=== PATIENT | female | born 1995 | race African-American/Black ===

== ENCOUNTER 2017-11-20 23:23 | Emergency (ER) | payer OTHER ==
[~2017-11-20] VITALS: Ht 157.5 cm; Wt 86.4 kg
[~2017-11-20 23:23] MED LIST: BACTROBAN2 % EX; CEPHALEXIN500 MG PO; CLEOCIN300 MG PO; CLINDAMYCIN11; CUBICIN500 MG IV; DEP0PROVERA; KEPPRA500 MG PO; LUPRON DEPOT11.25 MG IM; MIRALAX3350 N1 PO; NO HOME MEDS; PRENATAL1 TAB; TYLENOL # 31 TA1 PO; VANCOMYCIN
[2017-11-21 01:02] LABS: HEMATOCRIT 40.3 % (37.0-47.0); HEMOGLOBIN 12.9 g/dl (12.0-16.0); IMMATURE GRANULOCYTES 0.3 % (0.0-1.0); MEAN CELL VOLUME 85.2 fL CALC (80.0-100.0); MEAN CORPUSCULAR HGB 27.3 pG CALC (26.0-32.0); NEUT# 9.55 thou/uL (2.00-7.15); RED BLOOD COUNT 4.73 mill/uL (4.20-5.60); RED CELL DISTRI WIDTH 14.4 % (11.5-15.5)
[2017-11-21 01:03] LABS: URINE BILIRUBIN - DIPSTICK NEGATIVE (NEGATIVE); URINE BLOOD DIPSTICK NEGATIVE (NEGATIVE); URINE COLOR YELLOW; URINE GLUCOSE - DIPSTICK NEGATIVE (NEGATIVE); URINE KETONE NEGATIVE (NEGATIVE); URINE LEUK ESTERASE NEGATIVE (NEGATIVE); URINE NITRITE - DIPSTICK NEGATIVE (Negative); URINE PROTEIN - DIPSTICK NEGATIVE (NEG-TRACE); URINE SPECIFIC GRAVITY >=1.030; URINE UROBILINOGEN - DIPSTICK 0.2 E.U./dL (0.2)
[2017-11-21 01:04] LABS: URINE CLARITY SL CLOUDY
[2017-11-21 01:13] LABS: ALBUMIN 4.4 g/dL (3.2-5.0); ALKALINE PHOSPHATASE 67 u/l (38-126); AMYLASE 39 u/l (30-110); ANION GAP 19 (6-22 (CALC)); BILIRUBIN, TOTAL 0.7 mg/dL (0.0-1.4); BUN 9 mg/dL (7-17); BUN/CREATININE RATIO 14 (12-20 (CALC)); CARBON DIOXIDE 23 mmol/l (22-30); CHLORIDE 105 mmol/l (95-108); CREATININE 0.6 mg/dL (0.5-1.0); GFR > 60 ML/MIN (>=60 (CALC)); GFR FOR AFR.AMER. > 60 ML/MIN (>=60 (CALC)); LIPASE 42 u/l (23-300); POTASSIUM 3.9 mmol/l (3.5-5.1); SGOT/AST 18 u/l (14-36); SGPT/ALT 32 u/l (9-52); SODIUM 143 mmol/l (137-146)
[2017-11-21] MEDS ORDERED: ZOFRAN ODT4 MG PO (02:05)
[2017-11-21] MEDS ORDERED: FIORICET PO (02:05)
[2017-11-21 02:19] VITALS: BP 100/59
== END 2017-11-21 02:20 | disposition home or self-care (01) | DRG 103 ==
LOC: ED 23:23
PROVIDERS: Emergency Medicine
DX: G43.909 Migraine, unspecified, not intractable, without status migrainosus (principal); M79.1 Myalgia

== ENCOUNTER 2018-07-20 08:24 | Emergency (ER) | payer OTHER ==
[~2018-07-20] VITALS: Ht 157.5 cm; Wt 78.4 kg
[~2018-07-20 08:24] MED LIST changes: +FIORICET PO; +ZOFRAN ODT4 MG PO
[2018-07-20 10:36] VITALS: BP 118/73
== END 2018-07-20 10:58 | disposition home or self-care (01) | DRG 103 ==
LOC: ED 08:24
DX: G43.909 Migraine, unspecified, not intractable, without status migrainosus (principal)

== ENCOUNTER 2018-08-25 14:49 | Emergency (ER) | payer OTHER ==
[~2018-08-25] VITALS: Ht 157.5 cm; Wt 77.3 kg
[2018-08-25 17:01] LABS: ALBUMIN 4.1 g/dL (3.2-5.0); ALKALINE PHOSPHATASE 54 u/l (38-126); ANION GAP 15 (6-22 (CALC)); BILIRUBIN, TOTAL 0.6 mg/dL (0.0-1.4); BUN 7 mg/dL (7-17); BUN/CREATININE RATIO 9 (12-20 (CALC)); CARBON DIOXIDE 25 mmol/l (22-30); CHLORIDE 103 mmol/l (95-108); CREATININE 0.8 mg/dL (0.5-1.0); GFR > 60 ML/MIN (>=60 (CALC)); GFR FOR AFR.AMER. > 60 ML/MIN (>=60 (CALC)); POTASSIUM 3.5 mmol/l (3.5-5.1); SGOT/AST 17 u/l (14-36); SODIUM 139 mmol/l (137-146); TOTAL PROTEIN 7.1 g/dL (6.3-8.2)
[2018-08-25 17:09] LABS: HEMATOCRIT 41.2 % (37.0-47.0); HEMOGLOBIN 13.7 g/dl (12.0-16.0); IMMATURE GRANULOCYTES 0.3 % (0.0-5.0); MEAN CELL VOLUME 89.2 fL CALC (80.0-100.0); MEAN CORPUSCULAR HGB 29.7 pG CALC (26.0-32.0); MEAN CORPUSCULAR HGB CONC 33.3 g/L CALC (32.0-36.0); NEUT# 1.85 thou/uL (2.00-7.15); RED BLOOD COUNT 4.62 mill/uL (4.20-5.60); RED CELL DISTRI WIDTH 12.9 % (11.5-15.5)
[2018-08-25 17:20] LABS: URINE BILIRUBIN - DIPSTICK NEGATIVE (NEGATIVE); URINE BLOOD DIPSTICK LARGE (NEGATIVE); URINE COLOR YELLOW; URINE GLUCOSE - DIPSTICK NEGATIVE (NEGATIVE); URINE KETONE NEGATIVE (NEGATIVE); URINE LEUK ESTERASE NEGATIVE (NEGATIVE); URINE NITRITE - DIPSTICK NEGATIVE (Negative); URINE PROTEIN - DIPSTICK NEGATIVE (NEG-TRACE)
[2018-08-25 17:51] LABS: URINE RBC TNTC RBC/hpf (0-5); URINE SQUAMOUS EPITHELIAL CELL FEW EPI/hpf (0-FEW)
[2018-08-25 18:00] VITALS: BP 112/64
[2018-08-25] MEDS ORDERED: AMOXICILLIN875 MG PO (18:02)
[2018-08-25] MEDS ORDERED: CIPRODEX1 ML AD (18:04)
== END 2018-08-25 18:13 | disposition home or self-care (01) | DRG 156 ==
LOC: ED 14:49
DX: H60.91 Unspecified otitis externa, right ear (principal); R50.9 Fever, unspecified; J02.9 Acute pharyngitis, unspecified

== ENCOUNTER 2021-04-12 21:09 | Emergency (ER) | payer OTHER ==
[~2021-04-12] VITALS: Ht 154.9 cm; Wt 74.0 kg
[~2021-04-12 21:09] MED LIST changes: +AMOXICILLIN875 MG PO; +CIPRODEX1 ML AD
[2021-04-12 22:05] VITALS: BP 128/77
== END 2021-04-12 22:10 | disposition home or self-care (01) | DRG 866 ==
LOC: ED 21:09
DX: B34.9 Viral infection, unspecified (principal); Z20.822 Contact with and (suspected) exposure to COVID-19

== ENCOUNTER 2021-06-12 18:00 | Emergency (ER) | payer OTHER ==
[~2021-06-12] VITALS: Ht 154.9 cm; Wt 74.0 kg
[2021-06-12] MEDS ORDERED: DOXYCYCL HYC100 M4 PO (18:18)
[2021-06-12] MEDS ORDERED: PREDNISONE50 MG PO (18:18)
[2021-06-12] MEDS ORDERED: ZYRTEC10 M5 PO (18:18)
[2021-06-12 19:13] VITALS: BP 120/74
== END 2021-06-12 19:13 | disposition home or self-care (01) | DRG 607 ==
LOC: ED 18:00
DX: R21 Rash and other nonspecific skin eruption (principal)

== ENCOUNTER 2021-12-31 19:42 | Emergency (ER) | payer OTHER ==
[~2021-12-31] VITALS: Ht 154.9 cm; Wt 70.0 kg
[~2021-12-31 19:42] MED LIST changes: +DOXYCYCL HYC100 M4 PO; +PREDNISONE50 MG PO; +ZYRTEC10 M5 PO
[2021-12-31 20:06] VITALS: BP 122/82
[2021-12-31 20:15] VITALS: BP 117/81
[2021-12-31 20:30] VITALS: BP 124/81
[2021-12-31 20:41] LABS: URINE BILIRUBIN - DIPSTICK NEGATIVE (NEGATIVE); URINE BLOOD DIPSTICK NEGATIVE (NEGATIVE); URINE COLOR YELLOW; URINE GLUCOSE - DIPSTICK NEGATIVE (NEGATIVE); URINE KETONE NEGATIVE (NEGATIVE); URINE LEUK ESTERASE NEGATIVE (NEGATIVE); URINE PH 5.5 (4.5-8.0); URINE PROTEIN - DIPSTICK NEGATIVE (NEG-TRACE); URINE UROBILINOGEN - DIPSTICK 0.2 E.U./dL (0.2)
[2021-12-31 20:44] LABS: URINE NITRITE - DIPSTICK NEGATIVE (Negative)
[2021-12-31 20:50] LABS: HEMATOCRIT 35.6 % (37.0-47.0); HEMOGLOBIN 11.7 g/dl (12.0-16.0); IMMATURE GRANULOCYTES 0.3 % (0.0-5.0); MEAN CELL VOLUME 86.8 fL CALC (80.0-100.0); MEAN CORPUSCULAR HGB 28.5 pG CALC (26.0-32.0); MEAN CORPUSCULAR HGB CONC 32.9 g/dL CAL (32.0-36.0); NEUT# 4.83 thou/uL (2.00-7.15); RED BLOOD COUNT 4.1 mill/uL (4.20-5.60); RED CELL DISTRI WIDTH 11.6 % (11.5-15.5)
[2021-12-31 21:02] LABS: ALBUMIN 3.9 g/dL (3.2-5.0); AMYLASE 74 u/l (30-110); ANION GAP 10 (6-22 (CALC)); BILIRUBIN, TOTAL 0.6 mg/dL (0.0-1.4); BUN 5 mg/dL (7-17); BUN/CREATININE RATIO 10 (12-20 (CALC)); CARBON DIOXIDE 24 mmol/l (22-30); CHLORIDE 105 mmol/l (95-108); CREATININE 0.5 mg/dL (0.5-1.0); GFR FOR AFR.AMER. > 60 ML/MIN (>=60 (CALC)); GFR OTHER RACES > 60 ML/MIN (>=60 (CALC)); LIPASE 48 u/l (23-300); POTASSIUM 3.8 mmol/l (3.5-5.1); SGOT/AST 31 u/l (14-36); SODIUM 135 mmol/l (137-146)
[2021-12-31 21:03] LABS: ALKALINE PHOSPHATASE 70 u/l (38-126); TOTAL PROTEIN 8.1 g/dL (6.3-8.2)
[2021-12-31 21:45] LABS: BETA-HCG, QUANT(RESULT NUMBER) 170980 mIU/mL
[2021-12-31] MEDS ORDERED: PROMETHAZINE HY25 M1 PO (22:03)
[2021-12-31 23:10] VITALS: BP 124/81
== END 2021-12-31 23:19 | disposition home or self-care (01) | DRG 833 ==
LOC: ED 19:42
PROVIDERS: Family Medicine
DX: O21.9 Vomiting of pregnancy, unspecified (principal); Z3A.10 10 weeks gestation of pregnancy